=== PATIENT | female | born 1955 | race Caucasian/White ===

== ENCOUNTER → 2017-04-18 | Outpatient (CLI) | payer BC | LOC: MC.RAD 07:40 | DX: Z12.31 Encounter for screening mammogram for malignant neoplasm of breast (principal) ==

== ENCOUNTER 2018-04-10 08:43 | Emergency (ER) | payer BC ==
[~2018-04-10] VITALS: Ht 167.6 cm; Wt 63.6 kg
[2018-04-10 08:45] VITALS: TEMP 97
[2018-04-10] MEDS ORDERED: ALTACE 10MG TAB10 MG PO (08:58)
[2018-04-10 09:22] LABS: BASO % 0.4 % (0.0-2.0); EOS # 0.1 (0.0-0.7); EOS % 1.7 % (0-4.0); GRAN # 6.3 (1.4-6.5); GRAN % 82.1 % (42.2-75.2); HEMATOCRIT 37.8 % (37.0-47.0); HEMOGLOBIN 13.2 g/dl (12.5-16.0); LYMPH # 0.7 (1.2-3.4); LYMPH % 8.8 % (20.0-51.0); MEAN CELL VOLUME 84 fl (80.0-100.0); MEAN CORPUSCULAR HEMOGLOBIN 29 pg (27.0-31.0); MEAN CORPUSCULAR HGB CONC 35 g/dl (33.0-37.0); MEAN PLATELET VOLUME 9.6 fl (7.4-10.4); MONO # 0.5 (0.1-0.6); MONO % 6.7 % (1.7-9.3); PLATELET COUNT 161 K/mm3 (130-400); RED BLOOD COUNT 4.52 M/mm3 (4.10-5.30); REDCELL DISTRIBUTION WIDTH-CV 12.4 % (11.5-14.5)
[2018-04-10 10:06] LABS: ALANINE AMINOTRANSFERASE 25 U/L (9-52); ALBUMIN 3.3 gm/dL (3.5-5.0); ALKALINE PHOSPHATASE 56 U/L (50-136); ANION GAP 11 mmol/L (7-16); AST,SGOT 21 U/L (15-37); BILIRUBIN,TOTAL 0.7 mg/dL (0.0-1.0); BLOOD UREA NITROGEN 14 mg/dL (7-17); CALCIUM 8.8 mg/dL (8.4-10.2); CARBON DIOXIDE 24 mmol/L (22-30); CHLORIDE 104 mmol/L (98-107); CREATININE, serum 0.75 mg/dL (0.52-1.25); GLUCOSE 119 mg/dL (74-106); POTASSIUM 4.3 mmol/L (3.4-5.0); SODIUM 138 mmol/L (137-145); TOTAL PROTEIN 6.3 gm/dL (6.4-8.2)
[2018-04-10 10:21] LABS: TROPONIN-I < 0.012 ng/mL (0.000-0.034)
[2018-04-10 10:22] LABS: PROLACTIN 20.8 ng/mL (3.0-18.6)
[2018-04-10 11:16] LABS: COLLECTION METHOD CLEAN CATCH
[2018-04-10 11:24] LABS: MUCOUS Present /lpf; PH 5 (5-8); SQUAMOUS EPITHELIAL 0-2 /hpf; URINE APPEARANCE Clear; URINE BACTERIA Rare /hpf; URINE BILIRUBIN Negative (NEGATIVE); URINE BLOOD Negative (NEGATIVE); URINE COLOR Yellow; URINE GLUCOSE Negative (NEGATIVE); URINE KETONE Negative (NEGATIVE); URINE LEUKOCYTE ESTERASE Negative (NEGATIVE); URINE NITRATE Negative (NEGATIVE); URINE PROTEIN(semi-quant) Negative (NEGATIVE); URINE RBC 0-2 /hpf; URINE UROBILINOGEN Negative (NEGATIVE)
[2018-04-10 11:33] VITALS: BP 113/61; PULSE 63
== END 2018-04-10 11:32 | disposition home or self-care (01) ==
LOC: COL.ER 08:43
PROVIDERS: Family Medicine
DX: R55 Syncope and collapse (principal); I10 Essential (primary) hypertension
CPT/HCPCS: J7030

== ENCOUNTER 2018-05-23 08:12 | Day surgery (SDC) | payer BC ==
[~2018-05-23] VITALS: Ht 160 cm; Wt 61.5 kg
[~2018-05-23 08:12] MED LIST: ALTACE 10MG TAB10 MG PO
[2018-05-23] MEDS ORDERED: ASPIRIN 81M81 MG/TA2 PO (08:32)
[2018-05-23] MEDS ORDERED: ESTROVEN MAX400 MCG PO (08:33)
[2018-05-23] MEDS ORDERED: WOMEN'S DAILY F1 TAB PO (08:33)
[2018-05-23] MEDS ORDERED: AMBIEN 10MG10 MG PO (08:34)
[2018-05-23 08:36] VITALS: BP 124/70; PULSE 59; TEMP 98.3
[2018-05-23 10:40] VITALS: BP 112/90; PULSE 59; TEMP 97.9
[2018-05-23 10:55] VITALS: BP 115/74; PULSE 60
[2018-05-23 11:10] VITALS: BP 113/73; PULSE 54
[2018-05-23 11:25] VITALS: BP 111/71; PULSE 58
== END 2018-05-23 11:42 | disposition home or self-care (01) ==
LOC: SDCO 08:12
DX: Z12.11 Encounter for screening for malignant neoplasm of colon (principal); Z79.82 Long term (current) use of aspirin; Z79.899 Other long term (current) drug therapy
CPT/HCPCS: J2250; J2405; J3010; J7030

== ENCOUNTER → 2019-05-02 | Outpatient (CLI) | payer BC ==
[~2019-05-02] MED LIST changes: +AMBIEN 10MG10 MG PO; +ASPIRIN 81M81 MG/TA2 PO; +ESTROVEN MAX400 MCG PO; +WOMEN'S DAILY F1 TAB PO
== END ==
LOC: MC.RAD 07:27
DX: Z12.31 Encounter for screening mammogram for malignant neoplasm of breast (principal)

== ENCOUNTER → 2020-05-05 | Outpatient (CLI) | payer BC | LOC: MC.RAD 09:41 | DX: Z12.31 Encounter for screening mammogram for malignant neoplasm of breast (principal) ==

== ENCOUNTER → 2021-06-10 | Outpatient (CLI) | payer BC | LOC: MC.RAD 05-08 10:45 | DX: Z12.31 Encounter for screening mammogram for malignant neoplasm of breast (principal) ==

== ENCOUNTER → 2022-06-15 | Outpatient (CLI) | payer BC | LOC: MC.RAD 08:17 | DX: Z12.31 Encounter for screening mammogram for malignant neoplasm of breast (principal) ==

== ENCOUNTER → 2024-09-03 | Outpatient (CLI) | payer BC ==
[~2024-09-03] MED LIST changes: +HARD NAILS 2.51 CAP PO; +MIRALAX PA17 GM/Dose PO; +OSCAL 500 TAB500 MG PO; +PRILOSEC 20MG20 MG PO; +PROLIA60 MG/ML SQ; +VITAMIN D 400400 IU PO
== END ==
LOC: MC.RAD 08:18
DX: Z12.31 Encounter for screening mammogram for malignant neoplasm of breast (principal); Z12.4 Encounter for screening for malignant neoplasm of cervix